=== PATIENT | female | born 1945 | race Caucasian/White ===

== ENCOUNTER 2018-02-14 12:25 | Inpatient (IN) | payer MEDICARE, MEDICAID ==
[~2018-02-14] VITALS: Ht 147.3 cm; Wt 65.8 kg
[2018-02-14] MEDS ORDERED: ASPIRIN 81MG TABLET PO ONE (13:00)
[2018-02-14 13:23] LABS: BASOPHILS % 0.7 % (0.0-2.0); EOSINOPHILS % 0.9 % (0.0-5.0); HEMOGLOBIN. 13.1 g/dL (12.0-16.0); LYMPHOCYTES % 21.9 % (20.0-50.0); MEAN CORPUSCULAR HEMOGLOBIN 28.7 pg (28.0-32.0); MEAN CORPUSCULAR VOLUME 85.2 fL (81.0-99.0); MEAN PLATELET VOLUME 7.3 fl (7.4-10.4); MONOCYTES % 7.3 % (2.0-8.0); NEUTROPHILS % 69.2 % (40.0-76.0); PLATELET 295 x1000/uL (130-400); RED BLOOD CELL COUNT 4.58 mill/uL (4.2-5.4); RED CELL DISTRIBUTION WIDTH 14.8 % (11.6-14.6)
[2018-02-14 13:33] LABS: CHLORIDE 99 mEq/L (98-107)
[2018-02-14] MEDS ORDERED: ONDANSETRON HCL 4MG/2ML INJ IV PRN (14:15)
[2018-02-14] MEDS ORDERED: HYDROCODONE/ACETAMINOPHEN 5/325MG TABLET PO PRN (14:15)
[2018-02-14] MEDS ORDERED: CLONIDINE 0.1MG TABLET PO PRN (14:15)
[2018-02-14] MEDS ORDERED: ACETAMINOPHEN 325MG TABLET PO PRN (14:15)
[2018-02-14] MEDS ORDERED: MAGNESIUM/ALUMINUM HYDROXIDE/SIMETHICONE 30ML UDC PO PRN (14:15)
[2018-02-14] MEDS ORDERED: DOCUSATE SODIUM 100MG CAPSULE PO PRN (14:15)
[2018-02-14] MEDS ORDERED: MORPHINE SULFATE 4 MG/ML CPJ (NOT FOR IM USE) IV PRN (14:15)
[2018-02-14] MEDS ORDERED: NITROGLYCERIN 0.4MG TABLET SL SL SCH (14:15)
[2018-02-14] MEDS ORDERED: GUAIFENESIN 200MG/10ML SUGAR FREE UDC PO PRN (14:15)
[2018-02-14] MEDS ORDERED: NA PHOS,M-B/NA PHOS,DI-BA ENEMA 118ML PR PRN (14:15)
[2018-02-14] MEDS ORDERED: REGADENOSON 0.4 MG/5 ML IV SCH (15:30)
[2018-02-14] MEDS ORDERED: METF1000 MT (15:38)
[2018-02-14] MEDS ORDERED: ATOR20TA65 MT (15:38)
[2018-02-14] MEDS ORDERED: ATEN100T MT (15:38)
[2018-02-14] MEDS ORDERED: OXYB5TAB11 MT (15:38)
[2018-02-14] MEDS ORDERED: SITA100T11 MT (15:38)
[2018-02-14] MEDS ORDERED: LOSA1TAB37 MT (15:38)
[2018-02-14 17:15] VITALS: BP 120/66
[2018-02-14] MEDS ORDERED: ENOXAPARIN 40MG/0.4ML SYR SUBCUT SCH (18:00)
[2018-02-14] MEDS: LOSARTAN POTASSIUM 50 MG TABLET PO SCH (18:09)
[2018-02-14] MEDS ORDERED: DEXTROSE 50% WATER 50ML SYRINGE IV PRN (18:15)
[2018-02-14 20:00] VITALS: BP 135/51
[2018-02-14] MEDS: ATENOLOL 25MG TABLET PO SCH (21:00)
[2018-02-14] MEDS ORDERED: ATENOLOL 50 MG TABLET PO SCH (21:00)
[2018-02-14] MEDS: INSULIN LISPRO 100 UNITS/ML SUBCUT SCH (21:00)
[2018-02-14] MEDS: BLOOD SUGAR DIAGNOSTIC STRIP TEST SCH (21:34)
[2018-02-15] VITALS: BP 119/51
[2018-02-15 04:00] VITALS: BP 121/53
[2018-02-15] MEDS: BLOOD SUGAR DIAGNOSTIC STRIP TEST SCH ×2 (06:11→12:40)
[2018-02-15 07:41] LABS: BASOPHILS % 0.6 % (0.0-2.0); EOSINOPHILS % 1.1 % (0.0-5.0); HEMATOCRIT. 35.7 % (36.0-48.0); HEMOGLOBIN. 12.1 g/dL (12.0-16.0); LYMPHOCYTES % 29.4 % (20.0-50.0); MEAN CORPUSCULAR VOLUME 85.4 fL (81.0-99.0); MEAN PLATELET VOLUME 7.5 fl (7.4-10.4); MONOCYTES % 8.9 % (2.0-8.0); PLATELET 266 x1000/uL (130-400); RED BLOOD CELL COUNT 4.18 mill/uL (4.2-5.4); RED CELL DISTRIBUTION WIDTH 14.4 % (11.6-14.6)
[2018-02-15 08:00] VITALS: BP 136/46
[2018-02-15] MEDS: INSULIN LISPRO 100 UNITS/ML SUBCUT SCH (08:10)
[2018-02-15] MEDS ORDERED: REGADENOSON 0.4 MG/5 ML IV ONE (08:40)
[2018-02-15 08:58] LABS: CHLORIDE 100 mEq/L (98-107)
[2018-02-15] MEDS ORDERED: LISINOPRIL 10MG TABLET PO SCH (09:00)
[2018-02-15] MEDS: ATENOLOL 25MG TABLET PO SCH (09:00)
[2018-02-15] MEDS: LOSARTAN POTASSIUM 50 MG TABLET PO SCH (09:00)
[2018-02-15] MEDS: ASPIRIN 81MG EC TABLET PO SCH ×2 (09:00→12:56)
[2018-02-15 09:27] LABS: CREATINE KINASE 47 IU/L (26-192); CREATINE KINASE MB FRACTION < 1.0 ng/mL (0.5-3.6); HDL CHOLESTEROL 52 mg/dL (40-59); LDL CHOLESTEROL 81 mg/dL (5-100); T4 FREE 1.48 ng/dL (0.76-1.46)
[2018-02-15 12:00] VITALS: BP 128/56
[2018-02-15 16:10] VITALS: BP 128/56
== END 2018-02-15 17:41 | disposition home or self-care (01) | DRG 203 ==
LOC: ER 12:48 → SUPCPDRO 14:14 → ENRESERV 15:56 → 7WST 17:24
PROVIDERS: ADMIT Hospitalist; ATTEND Hospitalist
DX: M94.0 Chondrocostal junction syndrome [Tietze] (principal); E11.9 Type 2 diabetes mellitus without complications; R00.1 Bradycardia, unspecified; E78.00 Pure hypercholesterolemia, unspecified; E78.5 Hyperlipidemia, unspecified; M19.90 Unspecified osteoarthritis, unspecified site; E87.6 Hypokalemia; I10 Essential (primary) hypertension; Z82.49 Family history of ischemic heart disease and other diseases of the circulatory system; Z90.49 Acquired absence of other specified parts of digestive tract; Z79.84 Long term (current) use of oral hypoglycemic drugs; Z79.899 Other long term (current) drug therapy
CPT/HCPCS: 36415; 71045; 78452; 80061; 82550; 82553; 82962; 83036; 83880; 84439; 84443; 84484; 85379; 93005; 93017; 93306; 93970; 99285; A9500; J1650; J2785

== ENCOUNTER 2019-06-16 04:59 | Inpatient (IN) | payer MEDICARE, MEDICAID ==
[~2019-06-16] VITALS: Ht 152.4 cm; Wt 59.9 kg
[~2019-06-16 04:59] MED LIST: ATEN100T MT; ATOR20TA65 MT; LOSA1TAB37 MT; METF1000 MT; OXYB5TAB17 MT; SITA100T11 MT
[2019-06-16] MEDS ORDERED: ASPIRIN 325MG EC TABLET PO ONE (05:30)
[2019-06-16 05:40] LABS: BASOPHILS % 0.2 % (0.0-2.0); EOSINOPHILS % 0.1 % (0.0-5.0); HEMATOCRIT. 35.6 % (36.0-48.0); HEMOGLOBIN. 12.1 g/dL (12.0-16.0); LYMPHOCYTES % 9.9 % (20.0-50.0); MEAN CORPUSCULAR HEMOGLOBIN 28.3 pg (28.0-32.0); MEAN CORPUSCULAR VOLUME 83.3 fL (81.0-99.0); MEAN PLATELET VOLUME 7.6 fl (7.4-10.4); MONOCYTES % 6.4 % (2.0-8.0); NEUTROPHILS % 83.4 % (40.0-76.0); PLATELET 225 x1000/uL (130-400); RED BLOOD CELL COUNT 4.27 mill/uL (4.2-5.4); RED CELL DISTRIBUTION WIDTH 13.9 % (11.6-14.6)
[2019-06-16 05:47] LABS: PROTHROMBIN TIME 10.4 sec (9.6-11.0)
[2019-06-16 05:48] LABS: BG BASE EXCESS -0.6 mmol/L (-2.0-2.0); BG CARBOXYHEMOGLOBIN 0.3 % (0.5-1.5); BG DEOXYHEMOGLOBIN 2.3 % (0.0-5.0); BG FRACTION INSPIRED OXYGEN 21; BG METHEMOGLOBIN 0.2 % (0.0-1.5); BG OXYGEN SATURATION 97.7 % (92.0-98.5); BG OXYHEMOGLOBIN 97.2 % (94.0-97.0); BG PCO2 29.8 mmHg (35.0-45.0); BG PH 7.487 (7.350-7.450); BG PO2 107.4 mmHg (75.0-100.0); BG SAMPLE SITE RIGHT BRACHIAL; BG TOTAL HEMOGLOBIN 10.9 g/dL (12.0-18.0); BG VENT MODE ROOM AIR
[2019-06-16 05:50] LABS: CHLORIDE 89 mEq/L (98-107)
[2019-06-16 05:53] LABS: ETHANOL BLOOD < 10 mg/dL
[2019-06-16 05:56] LABS: LDL CHOLESTEROL 60 mg/dL (5-100)
[2019-06-16 05:58] LABS: CREATINE KINASE 93 IU/L (26-192)
[2019-06-16] MEDS ORDERED: SODIUM CHLORIDE 0.9% 1,000 ML IV ONE (06:30)
[2019-06-16 07:01] LABS: *AMPHETAMINES SCREEN URINE NEGATIVE (NEGATIVE); *BARBITURATES SCREEN URINE NEGATIVE (NEGATIVE); *BENZODIAZEPINES SCREEN URINE NEGATIVE (NEGATIVE)
[2019-06-16 07:02] LABS: *COCAINE SCREEN URINE NEGATIVE (NEGATIVE); CANNABINOID URINE SCREEN NEGATIVE (NEGATIVE); METHADONE URINE SCREEN NEGATIVE (NEGATIVE); PHENCYCLIDINE URINE SCREEN NEGATIVE (NEGATIVE)
[2019-06-16] MEDS ORDERED: IOHEXOL-350 100 ML BOTTLE ONE (07:24)
[2019-06-16 08:16] LABS: CLARITY URINE CLOUDY (CLEAR); COLOR URINE YELLOW (YELLOW); KETONES URINE NEGATIVE (NEGATIVE); LEUKOCYTE ESTERASE URINE 3+ (NEGATIVE); NITRITE URINE POSITIVE (NEGATIVE); OCCULT BLOOD URINE TRACE (NEGATIVE); PH URINE 7.5 (4.5-8.0); PROTEIN URINE NEGATIVE (NEGATIVE); SPECIFIC GRAVITY URINE 1.015 (1.005-1.030); UROBILINOGEN URINE 0.2 E.U./dL (0.2-1.0)
[2019-06-16] MEDS: SODIUM CHLORIDE 0.9% 1,000 ML IV SCH (10:30)
[2019-06-16] MEDS ORDERED: CEFTRIAXONE 1 G PREMIX 50 ML IV SCH ×2 (10:30→11:00)
[2019-06-16] MEDS: ENOXAPARIN 40MG/0.4ML SYR SUBCUT SCH (11:49)
[2019-06-16] MEDS: CLOPIDOGREL 75MG TABLET PO SCH (11:51)
[2019-06-16 12:12] LABS: T4 FREE 1.57 ng/dL (0.76-1.46)
[2019-06-16] MEDS ORDERED: POTASSIUM CHLORIDE 20MEQ TABLET SR PO NR (15:30)
[2019-06-16 19:12] LABS: T4 FREE 1.66 ng/dL (0.76-1.46)
[2019-06-16 19:27] LABS: FOLIC ACID (FOLATE) SERUM >20 ng/mL ng/mL (>5.38)
[2019-06-16 19:38] LABS: VITAMIN B12 SERUM 319 pg/mL (211-911)
[2019-06-16 21:00] VITALS: BP 134/75
[2019-06-16 21:38] VITALS: BP 134/75
[2019-06-16] MEDS ORDERED: GLIP10TA10 MT (22:15)
[2019-06-17] VITALS: BP 114/51
[2019-06-17] MEDS: SODIUM CHLORIDE 0.9% 1,000 ML IV SCH (02:30)
[2019-06-17 04:00] VITALS: BP_SYST 118; BP_SYST 129; BP_DIAS 44; BP_DIAS 54
[2019-06-17 08:00] VITALS: BP 148/59
[2019-06-17 08:03] LABS: BASOPHILS % 0.4 % (0.0-2.0); EOSINOPHILS % 0.5 % (0.0-5.0); HEMATOCRIT. 33.4 % (36.0-48.0); HEMOGLOBIN. 11.4 g/dL (12.0-16.0); MEAN CORPUSCULAR HEMOGLOBIN 28.7 pg (28.0-32.0); MEAN PLATELET VOLUME 7.9 fl (7.4-10.4); MONOCYTES % 13.5 % (2.0-8.0); NEUTROPHILS % 64.6 % (40.0-76.0); PLATELET 236 x1000/uL (130-400); RED BLOOD CELL COUNT 3.98 mill/uL (4.2-5.4)
[2019-06-17 08:05] LABS: CHLORIDE 103 mEq/L (98-107)
[2019-06-17 08:31] LABS: OPIATES URINE SCREEN NEGATIVE (NEGATIVE)
[2019-06-17] MEDS: CLOPIDOGREL 75MG TABLET PO SCH (09:22)
[2019-06-17] MEDS: ENOXAPARIN 40MG/0.4ML SYR SUBCUT SCH (09:23)
[2019-06-17 12:00] VITALS: BP_SYST 119; BP_SYST 120; BP_SYST 129; BP_DIAS 51; BP_DIAS 56; BP_DIAS 59
[2019-06-17] MEDS ORDERED: CEFTRIAXONE 1 G PREMIX 50 ML IV SCH ×2 (13:00→14:00)
[2019-06-17] MEDS ORDERED: DEXTROSE 50% WATER 50ML SYRINGE IV PRN (13:15)
[2019-06-17] MEDS ORDERED: LOSA100T32 MT (13:21)
[2019-06-17] MEDS ORDERED: SITA50TA3 MT (13:21)
[2019-06-17] MEDS ORDERED: LEVO500T2 MT (13:21)
[2019-06-17] MEDS ORDERED: BLOOD SUGAR DIAGNOSTIC STRIP TEST SCH (13:30)
[2019-06-17] MEDS ORDERED: INSULIN LISPRO 100 UNITS/ML SUBCUT SCH (13:30)
[2019-06-17 15:11] VITALS: BP 129/50
== END 2019-06-17 16:30 | disposition home or self-care (01) | DRG 420 ==
LOC: ER 05:07 → 5WST 06:16 → EDBEDREQSVC 06:19 → EDBEDREQ 06:19 → EDBEDREQTM 06:19 → ENRESERV 20:27
PROVIDERS: ADMIT Internal Medicine; ATTEND Internal Medicine
DX: E11.649 Type 2 diabetes mellitus with hypoglycemia without coma (principal); E87.8 Other disorders of electrolyte and fluid balance, not elsewhere classified; N39.0 Urinary tract infection, site not specified; E87.1 Hypo-osmolality and hyponatremia; E87.6 Hypokalemia; E04.2 Nontoxic multinodular goiter; I10 Essential (primary) hypertension
CPT/HCPCS: 36415; 36600; 70496; 70498; 70551; 71045; 73502; 80048; 80053; 80061; 80305; 80320; 81003; 82375; 82550; 82607; 82746; 82805; 82962; 83036; 83605; 83721; 84439; 84443; 84481; 84484; 85025; 86850; 86900; 87077; 87186; 93005; 93306; 93880; 97162; 97166; 99291; J0696; J1650; J1815; Q9967; G0480